=== PATIENT | female | born 1975 | race Caucasian/White ===

== ENCOUNTER 2016-05-25 11:38 | Emergency (ER) | payer OTHER ==
[~2016-05-25] VITALS: Ht 162.6 cm; Wt 88.1 kg
[~2016-05-25 11:38] MED LIST: ABILIFY10 MG; ANTIVERT25 MG PO; BUSPIRONE HCL15 MG; CARBAMAZEPINE200 MG PO; CARBATROL-ER300 MG PO; CELEXA20 MG PO; INVEGA9 MG PO; KEFLEX500 MG PO; KEPPRA750 MG PO; LAMICTAL100 MG PO; LAMICTAL150 M1 PO; LEXAPRO5 MG PO; NAPROXEN500 MG PO; NOHOMEMEDS; RISPERDAL0.25 MG PO; SEPTRA 80-4001 EACH PO; SERTRALINE HCL100 MG; TEGRETOL100 MG PO; TEGRETOL200 MG PO; VICODIN,LORT1 TABLET PO; VIMPAT50 MG PO; XANAX; ZITHROMAX250 MG PO; ZONISAMIDE100 MG PO
[2016-05-25 12:41] LABS: HEMATOCRIT 33.4 % (36.0-46.0); MCH 19.8 PG (29.0-34.0); MCV 61.9 FL (83-99); MEAN PLAT.VOLUME 10.1 uM^3 (9.5-12.4); PLATELET COUNT 255 K/uL (156-360); RBC DIS.WIDTH-CV 15.6 % (11.8-14.6); RBC DIS.WIDTH-SD 34.3 % (39-53); WHITE BLOOD COUNT 5.7 K/uL (4.1-10.2)
[2016-05-25 12:49] LABS: CHLORIDE 107 mEq/L (99-109); POTASSIUM 4.6 mEq/L (3.7-5.4); SODIUM 135 mEq/L (136-147)
[2016-05-25 12:51] LABS: GLUCOSE 96 mg/dL (70-99)
[2016-05-25 12:52] LABS: ANION GAP 12 MEQ/L (2-14)
[2016-05-25 12:55] LABS: GFR ESTIMATE (CALCULATED) > 59 mL/min/
[2016-05-25 12:56] LABS: UREA NITROGEN (BUN) 11 mg/dL (9-23)
[2016-05-25 13:03] LABS: QUANTITATIVE HCG < 4.0 MIU/ML
[2016-05-25] MEDS ORDERED: LAMICTAL100 MG PO (13:28)
[2016-05-25] MEDS ORDERED: VESICARE5 MG PO (13:29)
[2016-05-25] MEDS ORDERED: MYRBETRIQ25 MG PO (13:29)
[2016-05-25 13:55] LABS: ADD MIUA? YES; BILIRUBIN NEGATIVE; BLOOD NEGATIVE; COLOR YELLOW ((YELLOW)); GLUCOSE (STRIP) NEGATIVE; KETONES NEGATIVE; LEUKOCYTES MODERATE; NITRITE NEGATIVE; PH, URINE 7.5 (5-8); PROTEIN (STRIP) NEGATIVE; SPECIFIC GRAVITY 1.024 (1.000-1.030)
[2016-05-25] MEDS ORDERED: PREDNISONE5 M1 PO (14:03)
[2016-05-25] MEDS ORDERED: TYLENOL WITH C1 EACH PO (14:03)
[2016-05-25 14:10] LABS: BACTERIA 2+; EPITHELIAL CELLS 2+; MUCUS NONE SEEN; RED BLOOD CELLS NONE SEEN /HPF (0-5); UCUL ADDED? NO; WHITE BLOOD CELLS NONE SEEN /HPF (0-5)
[2016-05-25 14:11] LABS: CASTS NONE SEEN /LPF; CRYSTALS NONE SEEN
[2016-05-25 15:23] VITALS: BP 123/80
== END 2016-05-25 15:44 | disposition home or self-care (01) ==
LOC: EME 11:38 → RME 11:38
PROVIDERS: Physician Assistant
DX: M54.12 Radiculopathy, cervical region (principal); G80.9 Cerebral palsy, unspecified; Z86.73 Personal history of transient ischemic attack (TIA), and cerebral infarction without residual deficits; Z88.2 Allergy status to sulfonamides
CPT/HCPCS: 70450; 80048; 81003; 84702; 85027; 99281; 99284